=== PATIENT | male | born 1940 | race Caucasian/White ===

== ENCOUNTER 2022-05-16 12:44 | Emergency (ER) | payer OTHER ==
[~2022-05-16] VITALS: Ht 170.2 cm; Wt 81.2 kg
[2022-05-16 12:56] VITALS: BP 131/77
--- NOTE | 2022-05-16 13:02 | NUR ---
DR ORR AT BEDSIDE EVALUATING PT
[2022-05-16] MEDS: NACL 0.9% 1,000 ML IV ONE ×2 (13:22→16:40)
[2022-05-16] MEDS: FAMOTIDINE 20 MG/2 ML VIAL IVP ONE (13:23)
--- NOTE | 2022-05-16 13:25 | NUR ---
PRAVEEN SWAB COLLECTED AND HANDED TO PAVING RAMMER MADISON
--- NOTE | 2022-05-16 13:35 | NUR ---
PATIENT PROVIDED WITH URINAL TO PROVIDE SAMPLE.
--- NOTE | 2022-05-16 13:42 | NUR ---
CAREER DEVELOPER BEDSIDE
[2022-05-16 13:56] LABS: BASOPHILS % (AUTO) 0.2 % (0.0-2.0); HEMATOCRIT 37.2 % (36-52); HEMOGLOBIN 12.2 g/dL (12.0-18.0); LYMPHOCYTES % (AUTO) 10.2 % (20.5-51.1); MEAN CORPUSCULAR HEMOGLOBIN 26 pg (27-31); MEAN CORPUSCULAR HGB CONC 33 g/dL (33-37); MEAN CORPUSCULAR VOLUME 80.1 fL (80-94); MONOCYTES # (AUTO) 0.7 K/uL (0.8-1.0); MONOCYTES % (AUTO) 6.9 % (1.7-9.3); NEUTROPHILS # (AUTO) 7.8 K/uL (1.8-7.7); NEUTROPHILS % (AUTO) 82.7 % (42.2-75.2); PLATELET COUNT (AUTO) 306 K/uL (140-450); RED BLOOD CELL COUNT(AUTO) 4.64 MIL/uL (4.20-6.10); RED CELL DISTRIBUTION WIDTH 14.3 % (11.6-13.7); WHITE BLOOD COUNT (AUTO) 9.4 K/uL (4.8-10.8)
[2022-05-16 14:19] LABS: ALBUMIN 2.8 g/dL (3.4-5.0); ANION GAP 14.1 (8-16); ASPARTATE AMINOTRANSFERASE 18 U/L (15-37); CARBON DIOXIDE 28.7 mmol/L (21-32); CHLORIDE 101 mmol/L (98-107); CREATININE 0.9 mg/dL (0.6-1.3); GLUCOSE 340 mg/dL (74-106); LIPASE 97 U/L (73-393); POTASSIUM 3.8 mmol/L (3.5-5.1); SODIUM SERUM 140 mmol/L (136-145); TOTAL BILIRUBIN 0.4 mg/dL (0.0-1.0); UREA NITROGEN, BLOOD 29 mg/dL (7-18)
--- NOTE | 2022-05-16 14:30 | NUR ---
81/M BIBA FROM HOME. PER EMS PATIENTS FAMILY CALLED 911 STATING PATIENT HAS HAD N/V AND DIZZINESS SINCE 4PM YESTERDAY. PER EMS FAMILY STATED PATIENT HAD EPISODE OF "BLACK VOMIT" TODAY, DENIES COUGH, FEVERS OR RECENT SICK CONTACTS.
--- NOTE | 2022-05-16 15:48 | NUR ---
PATIENT UNABLE TO PROVIDE URINE AT THIS TIME, DR. MORGAN AWARE.
[2022-05-16] MEDS: INSULIN REGULAR, HUMAN 100 UNIT/ML VIAL SUBQ ONE (16:41)
--- NOTE | 2022-05-16 18:00 | NUR ---
Note shin in EDM - 05/16/22 at 1838 by EZRA #14 FR Renae catheter with [] ml utilizing sterile technique. Immediate return of [] ml [] urine noted. Urine sample collected and sent to lab. Pt tolerated procedure [].
[2022-05-16 18:07] LABS: APPEARANCE,URINE CLEAR (CLEAR); BILIRUBIN,URINE 1+ (NEGATIVE); BLOOD, URINE 2+ (NEGATIVE); COLOR,URINE YELLOW (YELLOW); LEUKOCYTE ESTERASE ,URINE 1+ (NEGATIVE); NITRITE, URINE POSITIVE (NEGATIVE); UGLUCOSE 1+ (NEGATIVE)
[2022-05-16 18:19] LABS: OTHER CASTS, URINE None Seen /LPF (None Seen); RBC,URINE 11-20 (MOD) /HPF (0-5)
[2022-05-16] MEDS ORDERED: cefTRIAXone 1,000 MG VIAL ONE (18:29)
--- NOTE | 2022-05-16 18:39 | NUR ---
#14 FR STRAIGH CATH INSERTED utilizing sterile technique. Immediate return OF 50 ml YELLOW CLOUDY urine noted. Urine sample collected and sent to lab. Pt tolerated procedure WELL.
[2022-05-16 19:08] VITALS: BP 106/60
--- NOTE | 2022-05-16 19:20 | NUR ---
Pt report given to NORI BURTON. Transfer of care at this time.
--- NOTE | 2022-05-16 19:23 | NUR ---
REPORT GIVEN TO NORI DANG. TRANSFER OF CARE AT THIS TIME
--- NOTE | 2022-05-16 19:27 | NUR ---
RESTING IN BED, AWAKE AND WAITING FOR TRANSPORT HOME
[2022-05-16] MEDS ORDERED: CEPH-588 PO (19:41)
--- NOTE | 2022-05-16 19:46 | NUR ---
D/C'D VIA AMBULANCE TRANSPORT ON [facility]
--- NOTE | 2022-05-16 19:46 | NUR ---
PT TAKEN BY TRANSPORT
== END 2022-05-16 19:46 | disposition home or self-care (01) ==
LOC: MED 12:44
DX: R11.2 Nausea with vomiting, unspecified (principal); Z20.822 Contact with and (suspected) exposure to COVID-19; E11.9 Type 2 diabetes mellitus without complications; I10 Essential (primary) hypertension; Z86.73 Personal history of transient ischemic attack (TIA), and cerebral infarction without residual deficits; Z98.890 Other specified postprocedural states
CPT/HCPCS: 36415; 71045; 80053; 81001; 83605; 83690; 84484; 85025; 87040; 87086; 87426; 93005; 96361; 96365; 96372; 96375; 99285; J0696; J1815; J3490; J7030; Q0092

== ENCOUNTER 2023-04-22 15:35 | Inpatient (IN) | payer OTHER ==
[2023-04-22] VITALS (8 sets, daily range): BP systolic 130–147; BP diastolic 72–87; PULSE 97–125; RESP 19–24; TEMP 96.6–98.6; O2SAT 84–100
[~2023-04-22] VITALS: Ht 180.3 cm; Wt 84.4 kg
[~2023-04-22 15:35] MED LIST: CEPH-588 PO
--- NOTE | 2023-04-22 15:35 | NUR ---
[facility] TO ER BED 10
[2023-04-22] MEDS ORDERED: INTUBATION KIT MC ONE (15:39)
[2023-04-22] MEDS ORDERED: ALBUTEROL SULFATE/IPRATROPIU 3 ML SOL IH ONE ×2 (15:51→15:55)
--- NOTE | 2023-04-22 15:54 | NUR ---
[facility] GIVEN INLINE ORDERED
[2023-04-22 16:13] LABS: BASOPHILS # (AUTO) 0.2 K/uL (0.00-0.22); EOSINOPHILS # (AUTO) 0.5 K/uL (0-0.4); HEMATOCRIT 41.7 % (36-52); HEMOGLOBIN 13.2 g/dL (12.0-18.0); LYMPHOCYTES # (AUTO) 9.3 K/uL (2.0-11.5); LYMPHOCYTES % (AUTO) 53.6 % (20.5-51.1); MEAN CORPUSCULAR HEMOGLOBIN 27 pg (27-31); MEAN CORPUSCULAR HGB CONC 32 g/dL (33-37); MEAN CORPUSCULAR VOLUME 85.8 fL (80-94); MONOCYTES # (AUTO) 0.9 K/uL (0.8-1.0); MONOCYTES % (AUTO) 5.2 % (1.7-9.3); NEUTROPHILS # (AUTO) 6.4 K/uL (1.8-7.7); NEUTROPHILS % (AUTO) 37.2 % (42.2-75.2); PLATELET COUNT (AUTO) 286 K/uL (140-450); RED BLOOD CELL COUNT(AUTO) 4.86 MIL/uL (4.20-6.10); RED CELL DISTRIBUTION WIDTH 14.9 % (11.6-13.7); WHITE BLOOD COUNT (AUTO) 17.3 K/uL (4.8-10.8)
[2023-04-22 16:33] LABS: ALBUMIN 3.5 g/dL (3.4-5.0); ANION GAP 21.3 (8-16); ASPARTATE AMINOTRANSFERASE 15 U/L (15-37); CARBON DIOXIDE 22.7 mmol/L (21-32); CHLORIDE 103 mmol/L (98-107); CREATININE 0.8 mg/dL (0.6-1.3); GLUCOSE 164 mg/dL (74-106); SODIUM SERUM 143 mmol/L (136-145); TOTAL BILIRUBIN 0.3 mg/dL (0.0-1.0); UREA NITROGEN, BLOOD 31 mg/dL (7-18)
[2023-04-22] MEDS ORDERED: NACL 0.9% 1,000 ML IV ONE ×2 (17:05→17:10)
[2023-04-22] MEDS ORDERED: MORPHINE SULFATE 2 MG/ML SYR IVP ONE (17:05)
[2023-04-22] MEDS ORDERED: AMPICILLIN/SULBACTAM 3 GM in NACL 0.9% 100 ML IV ONE (17:10)
[2023-04-22] MEDS ORDERED: NACL 0.9% 500 ML IV ONE (17:20)
[2023-04-22] MEDS ORDERED: AMPICILLIN/SULBACTAM 3 GM VIAL ONE (18:10)
--- NOTE | 2023-04-22 18:35 | NUR ---
DR WRIGHT PULMONARY AT BS TO EXAMINE PT SPO2 DROPPING AT 93% ON BIPAP. MD REQUESTING PT TO BE INTUBATED , DAUGHTER AT BS , MADE AWAREOF PLANS OF CARE. VERB UNDERSTANDING AGREED TO PROCEED
--- NOTE | 2023-04-22 18:53 | NUR ---
CALLED TO ER TO ASSIST INTUBATION FOR DR. WRIGHT AT THIS TIME. PT INTUBATED WITH A 7.5 ETT AT 24CM AT THE TEETH. PLACED ON A/C WITH VENT SETTINGS OF 500 TIDAL VOLUME, RR 14, PEEP 5, FIO2 100%. PER DR. WRIGHT TO CHANGE SETTINGS PER PT NEEDS. KEEP PEAK PRESSURES UNDER 38, AND TO KEEP O2 88% AND ABOVE. ABG TO FOLLOW.
[2023-04-22] MEDS ORDERED: DEXT 5% /NACL 0.9% 1,000 ML IV ONE (19:00)
[2023-04-22] MEDS ORDERED: NOREPINEPHRINE 4 MG in DEXTROSE 5% 250 ML IV ONE (19:00)
[2023-04-22] MEDS ORDERED: ALBUTEROL SULFATE/IPRATROPIU 3 ML SOL IH SCH (19:00)
[2023-04-22] MEDS ORDERED: MIDAZOLAM 5 MG/5 ML VIAL IV ONE (19:10)
[2023-04-22] MEDS ORDERED: MIDAZOLAM 5 MG/5 ML VIAL ONE (19:11)
[2023-04-22] MEDS ORDERED: fentaNYL citrate 0.05 MG/ML VIAL ONE ×3 (19:28→19:59)
[2023-04-22] MEDS ORDERED: MIDAZOLAM 5 MG/1 ML VIAL ONE (19:28)
--- NOTE | 2023-04-22 19:30 | NUR ---
VENT SETTINGS CHANGED TO PC 18, RR 20, I TIME 0.9, PEEP 10, FIO2 100%. ABG TO FOLLOW. WILL FOLLOW UP WITH DR. WRIGHT.
[2023-04-22] MEDS ORDERED: SUCCINYLCHOLINE CHLORIDE 200 MG/10 ML VIAL IVP SCH (19:35)
--- NOTE | 2023-04-22 19:37 | NUR ---
X-Ray at bedside.
[2023-04-22] MEDS ORDERED: NACL 0.9% 1,000 ML IV SCH (19:45)
[2023-04-22] MEDS ORDERED: HYDROcodone/APAP 5/325 MG 1 TAB TAB PO PRN (19:45)
[2023-04-22] MEDS ORDERED: ACETAMINOPHEN 325 MG TAB PO PRN (19:45)
[2023-04-22] MEDS ORDERED: ONDANSETRON 4 MG/2 ML VIAL IVP PRN (19:45)
[2023-04-22] MEDS ORDERED: METOCLOPRAMIDE 10 MG/2 ML INJ VIAL IVP PRN (19:45)
[2023-04-22] MEDS: ETOMIDATE 20 MG/10 ML VIAL IVP SCH ×3 (19:52→19:58)
[2023-04-22] MEDS: MIDAZOLAM MDV 50 MG in NACL 0.9% 40 ML IV PRN (19:53)
[2023-04-22] MEDS ORDERED: MIDAZOLAM MDV 50 MG/10 ML VIAL IV ONE (19:57)
[2023-04-22] MEDS: fentaNYL citrate 1 MG in NACL 0.9% 80 ML IV PRN (20:06)
--- NOTE | 2023-04-22 20:15 | NUR ---
SCALE MANAGER relayed pulmo specialist's orders that patient's oxygen saturation is to be maintained at or above 88%.
--- NOTE | 2023-04-22 20:17 | NUR ---
JUST SPOKE TO DR. WRIGHT REGARDING ABG RESULTS. PER DR. WRIGHT TO KEEP O2 88% AND ABOVE AND TO CHANGE PRESSURE CONTROL FROM 18 TO 22 ON VENTILATOR.
--- NOTE | 2023-04-22 20:30 | NUR ---
OGT insertion done. Patient tolerated procedure well. Placement verified via auscultation of insufflated air and aspiration of gastric contents. Addendum: 04/23/23 at 0654 by [facility] As per ED charge nurse, patient had an x-ray for ET placement prior to OGT insertion. Endorsed non-x-ray placement methods done to ICU nurse prior to floor admission.
--- NOTE | 2023-04-22 21:10 | NUR ---
Patient will be admitted to care of Dr. Antonio. Admited to ICU. Will go to room 2. Belongings list completed. Report to Ga JULIO.
[2023-04-22] MEDS ORDERED: ALBUTEROL SULFATE/IPRATROPIU 3 ML SOL IH PRN (22:30)
[2023-04-22] MEDS ORDERED: PROPOFOL 1000 MG/100 ML PREMIX 100 ML IV PRN (23:10)
[2023-04-23] VITALS (10 sets, daily range): BP systolic 85–151; BP diastolic 55–66; PULSE 33–141; RESP 6–21; TEMP 97.6–98.7; O2SAT 74–100
--- NOTE | 2023-04-23 | NUR ---
RECEIVED PT FROM ER AT 2140. PT WITH ETT TO VENTILATOR 24CM AT TEETH. AC/PC VT 500, FIO2 100%, PEEP 5, RR 22. NO S/S OF DISTRESS. NO SOB. LUNG SOUNDS CLEAR IN ALL LOBE ON AUSCULTATION. NORMAL SINUS RHYTHM. PT ON VERCED AT 1MG AND FENTYNAL AT 1MG. PT IS LIGHTLY SEDATED. LEFT AND RIGHT WRIST IV 18G CLEAN, DRY, AND INTACT. PT WITH CARDENAS CATHETER DRAIN TO GRAVITY. NO DEPENDENT LOOP. STAT LOCK IN PLACE. SKIN IS WARM, DRY, AND INTACT. CONTINUE TO MONITOR AND FOLLOW CARE PLAN
[2023-04-23] MEDS ORDERED: AMPICILLIN/SULBACTAM 3 GM VIAL ONE ×2 (01:18→05:43)
--- NOTE | 2023-04-23 02:13 | NUR ---
I CALLED DR. HAMMER, REPORTED PT. IV ACCESS IS PERIPHERAL AND PT. ON FENTANYL DRIP AND VERSED DRIP. HE ORDERED FOR PICC LINE.
--- NOTE | 2023-04-23 02:21 | NUR ---
I CALLED PT. DAUGHTER KAREN ANDRADE AND ABLE TO GET A CONSENT FOR PICC LINE, WITNESSED BY NORI WRIGHT. WILL CALL REMA PICC LINE NURSE AND WILL ENDORSE TO THE NEXT SHIFT.
[2023-04-23] MEDS: fentaNYL citrate 1 MG in NACL 0.9% 80 ML IV PRN (03:58)
[2023-04-23] MEDS: MIDAZOLAM MDV 50 MG in NACL 0.9% 40 ML IV PRN (03:58)
[2023-04-23 05:01] LABS: BASOPHILS % (AUTO) 0.1 % (0.0-2.0); HEMATOCRIT 40.8 % (36-52); HEMOGLOBIN 13.2 g/dL (12.0-18.0); LYMPHOCYTES # (AUTO) 0.8 K/uL (2.0-11.5); LYMPHOCYTES % (AUTO) 4.1 % (20.5-51.1); MEAN CORPUSCULAR HEMOGLOBIN 27 pg (27-31); MEAN CORPUSCULAR HGB CONC 32 g/dL (33-37); MEAN CORPUSCULAR VOLUME 84.9 fL (80-94); MONOCYTES # (AUTO) 0.8 K/uL (0.8-1.0); MONOCYTES % (AUTO) 4.2 % (1.7-9.3); NEUTROPHILS # (AUTO) 17.5 K/uL (1.8-7.7); NEUTROPHILS % (AUTO) 91.6 % (42.2-75.2); PLATELET COUNT (AUTO) 291 K/uL (140-450); RED BLOOD CELL COUNT(AUTO) 4.81 MIL/uL (4.20-6.10); RED CELL DISTRIBUTION WIDTH 14.9 % (11.6-13.7); WHITE BLOOD COUNT (AUTO) 19.1 K/uL (4.8-10.8)
[2023-04-23 05:45] LABS: ALBUMIN 3.2 g/dL (3.4-5.0); ANION GAP 17.9 (8-16); ASPARTATE AMINOTRANSFERASE 21 U/L (15-37); CARBON DIOXIDE 23.8 mmol/L (21-32); CHLORIDE 108 mmol/L (98-107); CREATININE 0.8 mg/dL (0.6-1.3); GLUCOSE 276 mg/dL (74-106); MAGNESIUM 1.3 mg/dL (1.8-2.4); PHOSPHORUS 4.7 mg/dL (2.5-4.9); POTASSIUM 3.7 mmol/L (3.5-5.1); SODIUM SERUM 146 mmol/L (136-145); TOTAL BILIRUBIN 0.4 mg/dL (0.0-1.0); UREA NITROGEN, BLOOD 26 mg/dL (7-18)
[2023-04-23] MEDS: AMPICILLIN/SULBACTAM 3 GM in NACL 0.9% 100 ML IV SCH ×3 (06:13)
--- NOTE | 2023-04-23 07:10 | NUR ---
RT CALLED TO PT BEDSIDE DUE TO PT DESAT. FOUND PT SATURATION AT 72% ON 100% FIO2 RT SUCTIONED THICK PALE/YELLOW SECRETIONS. POST SUCTION PT SATURATION RETURNED TO NORMAL RANGE OF 99% .
--- NOTE | 2023-04-23 07:53 | NUR ---
ENDORSED TO BURT RN DAY SHIFT FOR CONTINUITY OF CARE
--- NOTE | 2023-04-23 08:00 | NUR ---
Patients soft wrist restraint on right hand d/c. See problem restraint assessment.
--- NOTE | 2023-04-23 08:32 | NUR ---
Report received from slot shift manager nurse NORI Koroma. Pt orally intubated with ETT in place A/C PRVC FIO2 90% VT 500, RR 20, Peep 12. Patient sedated with propofol infusing to left 20G IV at 50 mcg, NS at 80 ml/hr. Right 18G on right hand infusing Versed 1mg and Fentanyl 30 mcg. Left 18G IV saline locked. Lung crackles are present in all lobes upon auscultation. Abdomen firm with OGT tube clamped. Renae catheter in place with clear yellow urine draining to gravity with no dependent loops and secured with stat lock. patients skin is intact. No acute distress or SOB noted. Bilateral soft wrist restraints for patient safety. Bed locked and to lowest position.call light within patient reach. bed locked and to lowest position. will continue to follow plan of care. Addendum: 04/23/23 at 1041 by BURT FROST RN Opening note 0732 Addendum: 04/23/23 at 1052 by BURT FROST RN Patient with right hand soft wrist restraint.
--- NOTE | 2023-04-23 08:40 | NUR ---
Dr. Singh rounded at patient bedside. put in new orders for patient. Will continue to follow plan of care.
--- NOTE | 2023-04-23 08:43 | NUR ---
Dr. Neff rounded at patients bedside. Per "I'll put in new orders." changed vent settings on ventilator. RT Diaz was present when ventilator settings were changed.
--- NOTE | 2023-04-23 08:53 | NUR ---
PATIENT HAS BEEN SCREENED AND CATEGORIZED HIGH NUTRITION RISK. PATIENT WILL BE SEEN WITHIN 1-2 DAYS OF ADMISSION. 04/23/23-04/24/23 [facility] CONSULT RECEIVED FOR LOW ОЛЕГ SCORE ON 04/23/23. RAINA [address]
[2023-04-23] MEDS ORDERED: NACL 0.45% 1,000 ML IV SCH (08:55)
[2023-04-23] MEDS ORDERED: ENOXAPARIN 40 MG/0.4 ML SYR SUBQ SCH ×2 (09:00)
[2023-04-23] MEDS ORDERED: PANTOPRAZOLE 40 MG INJ VIAL IVP SCH (09:00)
[2023-04-23] MEDS ORDERED: DOCUSATE 100 MG/10 ML UDC GT SCH (09:00)
[2023-04-23] MEDS ORDERED: DOCUSATE SODIUM 100 MG GELCAP PO SCH (09:00)
[2023-04-23] MEDS ORDERED: INSULIN LISPRO SLIDING SCALE 100 UNITS/ML VIAL SUBQ PRN ×2 (09:10)
[2023-04-23] MEDS ORDERED: DEXTROSE 50% 50 ML SYR IVP PRN (09:10)
--- NOTE | 2023-04-23 09:38 | NUR ---
Rounded at patients bedside upon assessment patient showed on monitor bradycardia in the 33's and SPO2 of 74 RT Joe was present at the moment, checked pulse with doppler no pulse noted. Initiated Duong Antonio made aware of the situation. See code blue sheet.
--- NOTE | 2023-04-23 09:49 | NUR ---
Dr. Figueroa pronounced patient . See code blue sheet.
--- NOTE | 2023-04-23 10:19 | NUR ---
Spoke with Namita from [facility] answered all questions. Referral number given [id number]. [facility] stated they will not pursue patient case.
--- NOTE | 2023-04-23 10:40 | NUR ---
[place] Manager Payment was contacted regarding patients expiring. Informed that [facility] will call ICU unit back.
--- NOTE | 2023-04-23 11:11 | NUR ---
Deputy Keaton Watts from the [facility] called the ICU unit per lucautelzbieta "you guys can release the body." College Football Coach will not pursue patient.
[2023-04-23] MEDS ORDERED: BLOOD GLUCOSE MONITORING 1 DEV DEV FS SCH ×2 (11:30→12:00)
--- NOTE | 2023-04-23 11:46 | NUR ---
Spoke with Camila from [facility] and [facility] regarding patients expiring. Per Camila "put in the mortuary notes to come mushroom picker patient ADAMS." Mortuary will call ICU unit when on the way.
--- NOTE | 2023-04-23 11:50 | NUR ---
Family aware that patient is going to get tile picker by their desired mortuary. Stated to daughter that Mortuary will get a hold of family to continue with services. Daughter Maryann aware and ok with the whole situation.
[2023-04-23] MEDS ORDERED: MIDODRINE 5 MG TAB NG SCH (13:00)
--- NOTE | 2023-04-23 13:38 | NUR ---
MD Antonio aware of patients expiring. No further orders given.
--- NOTE | 2023-04-23 13:39 | NUR ---
Dr. Neff aware that patient . No further orders received.
--- NOTE | 2023-04-23 14:03 | NUR ---
[employer] Developer SOLAR PHOTOVOLTAIC DESIGNER was going to conduct a Dishcharge Planning Assessment, however pt. coded and . SOLAR PHOTOVOLTAIC DESIGNER received a request to write a letter for pts. daughter, Itzel Almonte 09/07[birth year]61. SOLAR PHOTOVOLTAIC DESIGNER spoke to family, retrieved necessary info and wrote a letter, showed granddaughter, Yoko Krueger and provided letter. SOLAR PHOTOVOLTAIC DESIGNER expressed condolences and will remain available as needed.
--- NOTE | 2023-04-23 14:55 | NUR ---
[facility] came to black pickler patient. Family was inside the unit when patient got picked-up. Niece signed the [facility] paperwork when they arrived. This RN signed no paperwork from [facility] when they arrived.
--- NOTE | 2023-04-30 15:01 | NUR ---
04/23/2023 0813 LATE ENTRY; RECEIVED ON A copygramAPE R860 VENTILATOR PLUGGED INTO RED OUTLET TOLERATING WELL WITHOUT ADVERSE REACTIONS NOTED TO AN ENDOTRACHEAL TUBE #7.5 SECURED AT 24cm TEETH/GUM LINE WITH AN ANCHOR FAST CUFF PRESSURE CHECKED NOTED AMBU BAG AT BEDSIDE SEDATED RESTING WELL GOOD CHEST RISE ENDOTRACHEAL SUCTION FOR MODERATE THIN NOGUERA SECRETIONS AIRWAY PATENT; PRE SUCTIONING SATURATION 87% ON PEEP [id number] PRVC R20 VT500 P12 0.80 100% 507/21; ; 1:2.2; 15.0/6.0; 750/300; R40 HHN RHONCHI BILATERAL ; DIFFUSED RALES
--- NOTE | 2023-04-30 15:55 | NUR ---
04/23/2023 0845; LATE ENTRY; DR.SHAHRAM HIGUERA ROUNDING IN ICU; FOREMENTIONED MD ADVISED TITLE CAMERA OPERATOR OF CHANGES MADE TO VENTILATOR; PRVC R15 VT500 P7 50%
== END 2023-04-23 09:49 | DRG 871 ==
LOC: MED 15:35 → MTU 19:49 → MIC 20:25
PROVIDERS: ADMIT Internal Medicine; ATTEND Internal Medicine
PROC: 5A12012 Performance of Cardiac Output, Single, Manual (ICD-10-PCS; principal; 2023-04-22)
PROC: 5A1935Z Respiratory Ventilation, Less than 24 Consecutive Hours (ICD-10-PCS; 2023-04-22)
PROC: 0BH17EZ Insertion of Endotracheal Airway into Trachea, Via Natural or Artificial Opening (ICD-10-PCS; 2023-04-22)
DX: A41.9 Sepsis, unspecified organism (principal); J69.0 Pneumonitis due to inhalation of food and vomit; J96.01 Acute respiratory failure with hypoxia; I69.354 Hemiplegia and hemiparesis following cerebral infarction affecting left non-dominant side; E87.0 Hyperosmolality and hypernatremia; I10 Essential (primary) hypertension; E11.9 Type 2 diabetes mellitus without complications; D72.829 Elevated white blood cell count, unspecified; R13.10 Dysphagia, unspecified; Z20.822 Contact with and (suspected) exposure to COVID-19; Z79.2 Long term (current) use of antibiotics; Z79.899 Other long term (current) drug therapy; I46.9 Cardiac arrest, cause unspecified
CPT/HCPCS: 31500; 36415; 36569; 36600; 51702; 71045; 80053; 82803; 83605; 83735; 83880; 84100; 84484; 85025; 87040; 87081; 92950; 93005; 94002; 94640; 96374; 96375; 99291; J0295; J1815; J2250; J2270; J3010